=== PATIENT | male | born 1965 | race Caucasian/White ===

== ENCOUNTER → 2017-07-19 | Outpatient (CLI) | payer BC ==
[2017-07-19 08:16] LABS: Basophils % (A) 1 %; Eosinophils # (A) 0.1 k/uL (0-0.7); Eosinophils % (A) 2 %; HCT 41.1 % (39.0-53.0); HGB 14.1 gm/dL (13.0-17.5); Lymphocytes # (A) 1.6 k/uL (1.0-4.8); Lymphocytes % (A) 30 %; MCH 29.6 pg (25.0-35.0); MCHC 34.3 g/dL (31.0-37.0); MCV 86.3 fL (80.0-100.0); Mean Platelet Volume 6.3; Monocytes # (A) 0.4 k/uL (0-1.0); Monocytes % (A) 7 %; Neutrophils # (A) 3.1 k/uL (1.3-7.7); Neutrophils % (A) 59 %; Platelet Count 329 k/uL (150-450); RBC 4.76 m/uL (4.30-5.90); RDW 12.6 % (11.5-15.5); WBC 5.3 k/uL (3.8-10.6)
[2017-07-19 08:32] LABS: ALT 22 U/L (21-72); AST 21 U/L (17-59); Albumin 4.4 g/dL (3.5-5.0); Alkaline Phosphatase 60 U/L (38-126); Anion Gap 9 mmol/L; Blood Urea Nitrogen 17 mg/dL (9-20); Calcium 9.8 mg/dL (8.4-10.2); Carbon Dioxide 28 mmol/L (22-30); Chloride 105 mmol/L (98-107); Cholesterol 147 mg/dL (<200); Glucose 93 mg/dL (74-99); HDL Cholesterol 48 mg/dL (40-60); LDL Cholesterol,Calculated 85 mg/dL (0-99); Potassium 4.4 mmol/L (3.5-5.1); Sodium 142 mmol/L (137-145); Total Bilirubin 0.7 mg/dL (0.2-1.3); Total Protein 7.1 g/dL (6.3-8.2); Triglycerides 71 mg/dL (<150)
[2017-07-19 08:35] LABS: Partial Thromboplastin Time 24.8 sec (22.0-30.0); Prothrombin Time 10.1 sec (9.0-12.0)
== END | disposition home or self-care (01) ==
LOC: LABPAT 07:44
PROVIDERS: ATTEND Orthopaedic Surgery
DX: Z01.812 Encounter for preprocedural laboratory examination (principal); M16.12 Unilateral primary osteoarthritis, left hip
CPT/HCPCS: 36415; 80053; 80061; 85025; 85610; 85730; 86850; 86900; 86901; 87070

== ENCOUNTER 2017-07-29 11:09 | Inpatient (IN) | payer BC ==
[2017-07-19 12:24] VITALS: BMI 26.8
--- NOTE | 2017-07-28 12:38 | HP ---
HISTORY AND PHYSICAL REASON FOR ADMISSION: Surgery scheduled for 07/29/2017. Levon Riojas is a 52-year-old patient seen with symptomatic left hip osteoarthritis. We discussed treatment options. He elected to proceed with direct anterior left total hip arthroplasty. Consent regarding procedure obtained. Medical clearance was provided by Dr. Mendoza. PAST MEDICAL HISTORY: Gastroesophageal reflux disease. PAST SURGICAL HISTORY: Noncontributory. MEDICATIONS: Omeprazole, Vytorin. ALLERGIES: PENICILLIN. SOCIAL HISTORY: Patient denies current tobacco use. PHYSICAL EXAMINATION: Evaluation left hip range of motion is limited with significant pain. Positive hip impingement sign. Straight leg raise is negative. Distal neurovascular exam is intact. RADIOGRAPHS: Radiographs of the left hip revealed moderate to severe osteoarthritic changes. IMPRESSION: Left hip osteoarthritis. PLAN: Direct anterior left total hip arthroplasty. Surgery scheduled for 07/29/2017. MMODL / IJN: [id number] /
[~2017-07-29 11:09] MED LIST: ACETAMINOPHEN TAB 500 MG TAB PO ONE; DEXAMETHASONE SOD PHOSPHATE 10 MG/ML 1 ML VIAL IV ONE; HYDROmorphone 0.5 MG/0.5 ML SYRINGE IVP PRN; MELOXICAM 7.5 MG TAB PO ONE; ONDANSETRON 4 MG/2 ML VIAL IVP ONE; TRANEXAMIC ACID 1,000 MG in SODIUM CHLORIDE 0.9% 50 ML IVPB ONE; ceFAZolin IN SWFI 2 GM/20 ML SYRINGE IVP ONE
[2017-07-29] MEDS ORDERED: LIDOCAINE 1% 20 ML VIAL (10MG/ML) FOR IV START INTRADERMA ONE (12:03)
[2017-07-29] MEDS: LACTATED RINGERS 1,000 ML IV SCH ×2 (12:05→22:55)
[2017-07-29] MEDS ORDERED: ROPIVACAINE 246.25 MG, EPINEPHrine 0.5 MG, KETOROLAC 30 MG, cloNIDine HCL/PF 80 MCG, WA... MISCELLANE ONE ×5 (13:14)
[2017-07-29] MEDS ORDERED: MIDAZOLAM 2 MG/2 ML VIAL ONE (14:15)
[2017-07-29] MEDS ORDERED: PROPOFOL 10 MG/ML 20 ML VIAL IV ONE (14:15)
[2017-07-29] MEDS ORDERED: fentaNYL (PF) 50 MCG/ML 2 ML AMP ONE (14:15)
[2017-07-29] MEDS ORDERED: LIDOCAINE 1% INJ 10MG/ML (20 ML MDV) ONE (14:15)
[2017-07-29] MEDS ORDERED: CLINDAMYCIN 1,800 MG in SODIUM CHLORIDE 0.9% IRRIGATIO 3,000 ML IRRIGATION ONE (14:56)
[2017-07-29] MEDS ORDERED: LACTATED RINGERS 1,000 ML IV ONE (16:33)
[2017-07-29] MEDS ORDERED: hydrOXYzine PAMOATE 25 MG CAP PO PRN (16:35)
[2017-07-29] MEDS ORDERED: HYDROcodone/APAP 7.5-325MG 1 EACH TAB PO PRN (16:35)
[2017-07-29] MEDS ORDERED: NALOXONE 0.4 MG/ML 1 ML VIAL IV PRN (16:35)
[2017-07-29] MEDS ORDERED: ONDANSETRON 4 MG/2 ML VIAL IVP PRN (16:35)
[2017-07-29] MEDS ORDERED: MORPHINE SULFATE 4 MG/ML SYRINGE IVP PRN ×3 (16:35)
--- NOTE | 2017-07-29 16:35 | P.OP ---
Date of Procedure: 07/29/17 Preoperative Diagnosis: Left hip osteoarthritis Postoperative Diagnosis: Left hip osteoarthritis Procedure(s) Performed: Direct anterior left total hip arthroplasty Implants: 1. Depuy Corail KLA size 14 high offset collared press-fit femoral stem 2. Depuy pinnacle 58 mm press-fit acetabular shell 3. Depuy pinnacle polyethylene acetabular liner neutral 36 mm ID 58 mm OD 4. Depuy metallic femoral head 36 mm -2 Anesthesia: local, spinal Surgeon: Eddie Nguyen Sand Molder #1: Shaun Centeno Estimated Blood Loss (ml): 275 Pathology: none sent (Femoral head) Condition: stable Disposition: PACU Indications for Procedure: 52-year-old patient seen with symptomatic left hip osteoarthritis. After having treatment options discussed, he elected to proceed with total hip arthroplasty. Operative Findings: see description of procedure Description of Procedure: The patient was taken to the operative suite. Patient underwent a spinal anesthetic by the department of anesthesia. Patient was then transferred to the [place] table. Patient was given preoperative IV antibiotics and TXA. Both lower extremities were placed in standard leg spars. The hip was then prepped and draped in the normal sterile orthopedic fashion. A standard anterior incision was made beginning 3 cm lateral and 1 cm distal to the ASIS extending 10 cm. Dissection was then carried down through the subcutaneous soft tissues down to the fascia overlying the tensor fascia janene. An incision was now made through the fascia. Careful dissection was taken down exposing the tensor fascia janene muscle. A Cobra retractor was now placed along the medial femoral neck and a second one along the lateral femoral neck. The venous circumflex vessels were now identified, cauterized and clipped. We identified the anterior hip capsule. An incision was made through the hip capsule along the lateral border. Tag sutures were then placed along the anterior capsule and lateral capsule. We then performed a capsulotomy. Retractors were now placed around the femoral neck itself. A Cobra retractor was now placed along the anterior acetabulum. Good exposure was now noted of the femoral head/neck complex. Residual labrum was debrided out. We placed the extremity into 3 turns of fine traction. We were then able to introduce a skid in between the femoral head and acetabulum. A placed a awl into the femoral head. We took 2 turns of traction off the extremity. Rotation was now released. The femoral head was then dislocated without difficulty. Additional releasing was performed of the capsule. The head was then reduced. All traction was released. A femoral neck cut was now made with a sagittal saw. It was completed with an osteotome at the lateral neck area. The femoral head was now removed without difficulty. There was advanced osteoarthritis noted of the joint. The extremity was now rotated to 60 of external rotation. It was locked in position. Residual labrum was now debrided out. Serial reaming was performed of the acetabulum. Once we reached the appropriate size and a trial was position and fit nicely. The appropriate size was now chosen opened and made available. The trial component was removed. The wound was irrigated with pulse lavage mechanical irrigation. It was introduced into the acetabulum without difficulty. The C-arm/fluoroscopy was now brought into the operative field. We made sure we had a true AP pelvic view. We now under direct C-arm/ fluoroscopy introduced into the acetabular component with appropriate version and inclination. It was well seated but did not feel exceptionally stable. I now introduced 3 screws with good bite and purchase stabilizing the acetabular component. The C-arm was brought back in the field confirming adequate alignment. The C-arm was pulled back. An appropriate liner was introduced and clicked into position. It was felt to be stable. At this point retractors were removed. The extremity was now placed into 120 external rotation with no traction. The leg was now dropped to the ground and adducted. Appropriate retractors were now positioned along the proximal femur. We also placed our femoral look into position. Additional capsular releasing was performed to gain access to the proximal femur. We now used a box osteotome. A canal finder was now utilized. Serial broaching was now performed until we reached the appropriate size with good overall rotational stability. Appropriate calcar planing was performed. A trial head/neck was placed into position. The hip was now reduced. The C-arm/fluoroscopy was brought back into the operative field. A spot film was obtained of the nonoperative hip. A spot film was obtained of the trial components. Overlays were performed, we noted good overall alignment and positioning for determining leg length. The C-arm/ fluoroscopy was pulled back. Retractors were repositioned and the hip was dislocated. The leg was again taken down to the ground and adducted. Appropriate retractors were repositioned as well as the femoral hook. All trial components were removed. The wound was irrigated with pulse lavage mechanical irrigation. The femoral implant was opened along with the femoral head. The femoral implant was introduced with good purchase and fixation noted. The femoral head was introduced with good positioning and fixation noted. Retractors were now removed. The hip was now reduced. There appeared be good positioning of the hip. This was confirmed under fluoroscopy and spot films were obtained to document this. A second gram of TXA was given. Bipolar cautery had been utilized intermittently through the procedure for hemostasis. The wound was irrigated copiously with pulse lavage mechanical irrigation. The soft tissues were infiltrated local analgesic. The fascia was repaired with Vicryl suture. The subcutaneous soft tissues were repaired in layers with Vicryl suture. The skin was approximated with pernio/Dermabond. Sterile dressings were applied. Patient was then awakened, transferred to a bed and taken to recovery in stable condition. Rivera LOPEZ assisted with the procedure.
[2017-07-29 18:32] LABS: Glucose,Whole Blood 134 mg/dL (75-99)
[2017-07-29] MEDS ORDERED: SODIUM CHLORIDE 0.9% 500 ML IV ONE (18:47)
[2017-07-29 19:12] LABS: Basophils % (A) 0 %; Eosinophils % (A) 0 %; HCT 35.1 % (39.0-53.0); HGB 11.4 gm/dL (13.0-17.5); Lymphocytes # (A) 0.6 k/uL (1.0-4.8); Lymphocytes % (A) 5 %; MCH 28.7 pg (25.0-35.0); MCHC 32.5 g/dL (31.0-37.0); MCV 88.4 fL (80.0-100.0); Mean Platelet Volume 6.5; Monocytes # (A) 0.2 k/uL (0-1.0); Monocytes % (A) 2 %; Neutrophils # (A) 11.7 k/uL (1.3-7.7); Neutrophils % (A) 93 %; Platelet Count 291 k/uL (150-450); RBC 3.97 m/uL (4.30-5.90); RDW 12.9 % (11.5-15.5); WBC 12.6 k/uL (3.8-10.6)
[2017-07-29] MEDS: traMADol 50 MG TAB PO SCH ×2 (20:56→21:02)
[2017-07-29] MEDS: SODIUM CHLORIDE 0.9% 1,000 ML IV SCH (21:07)
[2017-07-29] MEDS: ceFAZolin IN SWFI 2 GM/20 ML SYRINGE IVP SCH (22:15)
[2017-07-29] MEDS: SENNOSIDES-DOCUSATE SODIUM 1 EACH TAB PO SCH (22:15)
[2017-07-30] MEDS: LACTATED RINGERS 1,000 ML IV SCH ×3 (06:03→17:53)
[2017-07-30] MEDS: SODIUM CHLORIDE 0.9% 1,000 ML IV SCH ×3 (06:06→21:06)
[2017-07-30] MEDS: ceFAZolin IN SWFI 2 GM/20 ML SYRINGE IVP SCH (06:06)
[2017-07-30] MEDS: HYDROcodone/APAP 7.5-325MG 1 EACH TAB PO PRN (08:21)
[2017-07-30] MEDS: FAMOTIDINE 20 MG TAB PO SCH (08:21)
[2017-07-30] MEDS: ENOXAPARIN 40 MG/0.4 ML SYRINGE SQ SCH (08:21)
[2017-07-30] MEDS: traMADol 50 MG TAB PO SCH ×4 (08:21→21:07)
[2017-07-30 08:37] LABS: Basophils % (A) 0 %; Eosinophils % (A) 0 %; HGB 10.2 gm/dL (13.0-17.5); Lymphocytes % (A) 7 %; MCH 29.6 pg (25.0-35.0); MCV 87.2 fL (80.0-100.0); Mean Platelet Volume 6.3; Monocytes % (A) 7 %; Neutrophils # (A) 12.4 k/uL (1.3-7.7); Neutrophils % (A) 86 %; Platelet Count 279 k/uL (150-450); RBC 3.45 m/uL (4.30-5.90); RDW 12.8 % (11.5-15.5); WBC 14.4 k/uL (3.8-10.6)
--- NOTE | 2017-07-30 10:00 | FL ---
Fluoroscopy INDICATION: Pain FINDINGS: Fluoroscopy time: 12 seconds. Images obtained: 1. IMPRESSIONS: 1. Documentation of fluoroscopy.
--- NOTE | 2017-07-30 10:19 | P.DS ---
Providers Date of admission: 07/29/17 11:09 Expected date of discharge: 07/31/17 Attending physician: Eddie Nguyen Consults: 07/29/17 16:35 Consult Physician Routine Consulting Provider: Marilee Hills Consult Reason/Comments: Medical management Do you want consulting provider notified?: Yes 07/29/17 18:47 Consult Physician Routine Consulting Provider: [facility] Consult Reason/Comments: bradycardia Do you want consulting provider notified?: Yes Primary care physician: Tanvir [facility] Course: Date of admission: 07/29/2017 Date of discharge: 07/31/2017 Admission diagnosis: status post left total hip arthroplasty Discharge diagnosis: same Attending physician: Dr. Nguyen Surgical procedures: left total hip arthroplasty Brief history: Patient is a 52-year-old male with a history of progressive primary left hip arthritis. At this point patient has failed conservative treatment measures and has opted to proceed with a elective left total hip arthroplasty. Hospital course: Details of patient's surgery can be found in operative report. Patient tolerated the procedure well and was subsequently transported to orthopedic floor. Patient's orthopeidc and medical care was provided daily. Patient had daily laboratory tests performed for evaluation of overall blood counts. Patient had daily physical therapy to include strengthening range of motion as well as education with walker ambulation. Patient was treated with Lovenox for their postoperative DVT prophylaxis during their inpatient stay. Patient was noted to have a relatively uneventful postoperative course. Patient reported satisfactory pain control with oral pain medications by postoperative day 0. Patient showed satisfactory progress with physical therapy. Patient moved steadily through the program and had no difficulty meeting the goals by postoperative day 2. Given patient's otherwise satisfactory course and having met physical therapy goals, plan is to discharge patient home on postoperative day 2. Discharge condition/disposition: Patient will be discharged home in stable condition. Discharge medications: Instructions are given on resumption of patient's normal daily medications per primary care recommendation, in addition patient will be prescribed [place] 7.5 mg/325 mg, tramadol 50 mg, Colace 100 mg, Pepcid 20 mg, aspirin 325 mg. Discharge instructions: 1. Wound care and infection precautions, keep incision dry and covered while showering, no lotions, creams, moisturizers. No soaking, tubs, pools, hottubs. Do not scrub over the incision. 2. Weight-bear as tolerated with walker / cane until follow-up. 3. Ice and elevate when necessary. Do not exceed 20 minutes per hour with ice pack. 4. Utilize compression sleeve until seen at first follow up appointment. 5. Visiting nursing care. 6. Home physical therapy 7. Pain meds and anticoagulants per prescription. 8. Pain medication has potential to cause constipation. Increase oral fluid and fiber intake. Contact primary care provider if you have not had a bowel movement within 48 hours after discharge 9. No anti-inflammatory medication until discussed at first post operative visit, this including Motrin, Aleve, Mobic, Diclofenac 10. Follow up in office at 2 weeks postop with Rivera Centeno PA-C 11. Follow up with your primary care doctor 7-10 days after discharge. 12. Contact [facility] with any questions, . Procedures: Left total hip arthroplasty Patient Condition at Discharge: Good Plan - Discharge Summary Discharge Rx Participant: Yes New Discharge Prescriptions: New Aspirin 325 mg PO BID #60 tab Docusate [Colace] 100 mg PO DAILY #30 capsule Famotidine [Pepcid] 20 mg PO DAILY #30 tablet HYDROcodone/APAP 7.5-325MG [[place] 7.5] 1 each PO Q6HR PRN #40 tab PRN Reason: Pain traMADol HCl [Ultram] 50 mg PO Q6H PRN #40 tab PRN Reason: Pain No Action Ezetimibe/Simvastatin [Vytorin 10-40 mg Tablet] 1 tab PO HS Discharge Medication List Ezetimibe/Simvastatin [Vytorin 10-40 mg Tablet] 1 tab PO HS 07/19/17 [History] Aspirin 325 mg PO BID #60 tab 07/31/17 [Rx] Docusate [Colace] 100 mg PO DAILY #30 capsule 07/31/17 [Rx] Famotidine [Pepcid] 20 mg PO DAILY #30 tablet 07/31/17 [Rx] HYDROcodone/APAP 7.5-325MG [[place] 7.5] 1 each PO Q6HR PRN #40 tab 07/31/17 [Rx] traMADol HCl [Ultram] 50 mg PO Q6H PRN #40 tab 07/31/17 [Rx] Follow up Appointment(s)/Referral(s): Tanvir Mendoza MD [Primary Care Provider] - 1 Week [facility], [NON-STAFF] - Shaun Centeno PAC [PHYSICIAN GOLD FRAME ASSEMBLER] - 2 Weeks Patient Instructions/Handouts: Total Hip Replacement (DC) Activity/Diet/Wound Care/Special Instructions: Orthopedic Discharge Instructions: 1. Wound care and infection precautions, keep incision dry and covered while showering, no lotions, creams, moisturizers. No soaking, pools, hot tubs. Do not scrub over incision. 2. Weight-bear as tolerated with walker / cane until follow-up. 3. Ice and elevate when necessary. Do not exceed 20 minutes per hour with ice pack. 4. Utilize compression sleeve until seen at first follow up appointment. 5. Visiting nursing care. 6. Home physical therapy. 7. Pain meds and anticoagulants per prescription. 8. Pain medication has potential to cause constipation. Increase oral fluid and fiber intake. Contact primary care provider if you have not had a bowel movement within 48 hours after discharge. 9. No anti-inflammatory medication until discussed at first post operative visit, this including Motrin, Aleve, Mobic, Diclofenac. 10. Follow up in office at 2 weeks postop with Rivera Centeno PA-C 11. Follow up with your primary care doctor 7-10 days after discharge. 12. Contact [facility] with any questions, Discharge Disposition: HOME WITH HOME HEALTH SERVICES
--- NOTE | 2017-07-30 11:09 | P.PN ---
Subjective Progress Note Date: 07/30/17 Principal diagnosis: Status post left total hip arthroplasty Patient is seen today resting in his hospital bed, he appears comfortable. His is present with him at bedside. Patient is ambulating with therapy today, his pain is well-controlled. There was a CODE BLUE was called and the patient last night, there was then a cardiac consult place with numerous labs and other tests. He remains a symptomatic at this point. He denies any headaches, lightheadedness, chest pain or shortness of breath. Objective - Vital Signs Vital signs: Vital Signs Temp 98.3 F 07/30/17 07:00 Pulse 80 07/30/17 07:00 Resp 16 07/30/17 07:00 BP 123/70 07/30/17 07:00 Pulse Ox 97 07/30/17 07:00 Intake & Output 07/29/17 07/30/17 07/30/17 18:59 06:59 18:59 Intake Total 1451 1000 237 Output Total 275 900 Balance 1176 100 237 Weight 84.822 kg Intake: IV 1451 1000 Sodium Chloride 0.9% 1, 1000 000 ml @ 125 mls/hr IV . Q8H [facility] Rx#:[id number] Oral 237 Output: Urine 900 Estimated Blood Loss 275 Other: Voiding Method Urinal # Voids 1 - Exam Left lower extremity: Incision is clean, dry, and intact. The prineo tape is in good condition. There is minimal soft tissue swelling and ecchymosis surrounding the medial and lateral aspects of the incision. Calf is soft, no tenderness with palpation. Plantar flexion, dorsiflexion, EHL, FHL are intact. Sensory exam to light touch throughout the extremity is intact, dorsal pedis pulses 2+. - Labs CBC & Chem 7: 07/30/17 07:18 Labs: Abnormal Lab Results - Last 24 Hours (Table) 07/29/17 07/29/17 07/30/17 Range/Units 18:27 18:54 07:18 WBC 12.6 H 14.4 H (3.8-10.6) k/uL RBC 3.97 L 3.45 L (4.30-5.90) m/uL Hgb 11.4 L 10.2 L (13.0-17.5) gm/dL Hct 35.1 L 30.0 L (39.0-53.0) % Neutrophils # 11.7 H 12.4 H (1.3-7.7) k/uL Lymphocytes # 0.6 L (1.0-4.8) k/uL POC Glucose (mg/dL) 134 H (75-99) mg/dL Assessment and Plan Plan: Assessment: 1. Postop day 1 status post left total hip arthroplasty Plan: 1. Pain control, continue use of oral medication 2. Weight-bear as tolerated with walker 3. Daily dressing changes/ice the hip region 4. GI and DVT prophylaxis, continue Lovenox during inpatient stay 5. Await cardiac recommendations 6. Medical recommendations 7. Discharge planning: An orthopedic standpoint, the patient is stable for discharge to home. Will await cardiac recommendations Time with Patient: Less than 30
[2017-07-30] MEDS ORDERED: HYDROmorphone 2 MG TAB PO PRN ×2 (15:19→15:20)
[2017-07-30] MEDS ORDERED: HYDROmorphone 4 MG TABLET PO PRN (15:22)
--- NOTE | 2017-07-30 18:55 | ECHOF ---
Referral Reason:bradycardia, vagal response MEASUREMENTS -------- HEIGHT: 177.8 cm WEIGHT: 84.8 kg BP: 126/62 RVIDd: 2.8 cm (< 3.3) IVSd: 0.8 cm (0.6 - 1.1) LVIDd: 5.3 cm (3.9 - 5.3) LVPWd: 0.9 cm (0.6 - 1.1) IVSs: 1.5 cm LVIDs: 3.0 cm LVPWs: 1.6 cm LAESV Index (A-L): 22.80 ml/m Ao Diam: 3.3 cm (2.0 - 3.7) AV Cusp: 2.2 cm (1.5 - 2.6) LA Diam: 3.2 cm (2.7 - 3.8) EPSS: 0.3 cm MV E Pramod: 1.08 m/s MV DecT: 184 ms MV A Pramod: 1.09 m/s MV E/A Ratio: 0.99 RAP: 5.00 mmHg RVSP: 36.77 mmHg MV EF SLOPE: 101.00 mm/s (70 - 150) MV EXCURSION: 1.84 cm (> 18.000) FINDINGS -------- Sinus rhythm. This was a technically good study. The left ventricular size is normal. Left ventricular wall thickness is normal. Overall left vent ricular systolic function is normal with, an EF between 55 - 60 %. The right ventricle is normal in size and function. Normal LA size by volume 22+/-6 ml/m2. The right atrium is normal in size. The aortic valve is trileaflet, and appears structurally normal. No aortic stenosis or regurgitation. The mitral valve leaflets are mildly thickened. There is trace to mild mitral regurgitation. Mild tricuspid regurgitation present. There is borderline pulmonary hypertension. The right ventr icular systolic pressure, as measured by Doppler, is 36.77mmHg. Trace/mild (physiologic) pulmonic regurgitation. The aortic root size is normal. Normal inferior vena cava with normal inspiratory collapse consistent with estimated right atrial pre ssure of 5 mmHg. The pericardium is normal. There is no pericardial effusion. CONCLUSIONS -------- 1. Sinus rhythm. 2. This was a technically good study. 3. The left ventricular size is normal. 4. Left ventricular wall thickness is normal. 5. Overall left ventricular systolic function is normal with, an EF between 55 - 60 %. 6. Normal LA size by volume 22+/-6 ml/m2. 7. The aortic valve is trileaflet, and appears structurally normal. No aortic stenosis or regurgitati on. 8. The mitral valve leaflets are mildly thickened. 9. There is trace to mild mitral regurgitation. 10. Mild tricuspid regurgitation present. 11. There is borderline pulmonary hypertension. 12. The right ventricular systolic pressure, as measured by Doppler, is 36.77mmHg. 13. Trace/mild (physiologic) pulmonic regurgitation. 14. The aortic root size is normal. 15. There is no pericardial effusion. PANTRY STEWARD/STEWARDESS: Rosendo Gutiérrez RDCS
--- NOTE | 2017-07-30 19:14 | P.CRDCN ---
History of Present Illness Consult date: 07/30/17 History of present illness: This is a 60-year-old gentleman who had elective hip replacement yesterday. Yesterday evening patient was in bed and apparently developed some nausea and vomiting. Subsequently, he became unresponsive. According to patient's , patient was looking pale, clenching his hands and staring down without answering. She called for help. According to the nurses, he was unresponsive and pale. His blood pressure was 70 and his heart rate was in the 30s and 40s. He was put in Trendelenburg position and gradually his blood pressure and heart rate improved and patient became responsive with some fluctuating mentation. Since then patient has gradually improved and stayed stable. No complaints of any chest pain or palpitations. His initial EKG showed sinus rhythm and sinus bradycardia. No changes of ischemia. Cardiac enzymes 2 are negative. Echo Cardigan showed normal LV function. At this time is felt that her symptoms most probably vasovagal. This could be related to medication. Review of Systems REVIEW OF SYSTEMS: CONSTITUTIONAL: As per the chart. Patient is doing well. No complaints of fever or chills EYES: Denies diplopia, blurring of vision EARS, NOSE, MOUTH, THROAT: Denies headaches, denies sore throat. CARDIOVASCULAR: Denies chest pain, denies shortness of breath, denies palpitations RESPIRATORY: Denies shortness of breath, denies cough. GASTROINTESTINAL: Denies change in appetite, denies abdominal pain, denies diarrhea GENITOURINARY: Denies hematuria, denies infections. MUSKULOSKELETAL: Denies any significant pain in the hip INTEGUMENTARY: Denies rash, denies eczema. NEUROLOGICAL: Denies focal weakness, or visual disturbance. Denies any dizziness or syncope PSYCHIATRIC: Denies anxiety, denies depression. HEMATOLOGIC/LYMPHATIC: Denies any bleeding, denies enlarged lymph nodes. Past Medical History Past Medical History: Osteoarthritis (OA) History of Any Multi-Drug Resistant Organisms: None Reported Past Surgical History: Adenoidectomy, Tonsillectomy Additional Past Surgical History / Comment(s): POLYP REMOVED FROM THROAT Past Anesthesia/Blood Transfusion Reactions: No Reported Reaction Past Psychological History: No Psychological Hx Reported Smoking Status: Never smoker Past Alcohol Use History: Rare Past Drug Use History: None Reported - Past Family History Mother Family Medical History: No Reported History Medications and Allergies Home Medications Medication Instructions Recorded Confirmed Type Ezetimibe/Simvastatin [Vytorin 1 tab PO HS 07/19/17 07/29/17 History 10-40 mg Tablet] Ibuprofen [Motrin Ib] 800 mg PO BID PRN 07/19/17 07/29/17 History Allergies Allergy/AdvReac Type Severity Reaction Status Date / Time Penicillins Allergy Unknown Verified 07/29/17 18:16 Physical Exam Vitals: Vital Signs Temp Pulse Pulse Resp BP Pulse Ox 07/30/17 14:27 97.8 F 71 16 116/70 96 07/30/17 07:00 98.3 F 80 16 123/70 97 07/30/17 02:11 99.3 F 92 17 126/62 95 07/29/17 21:03 97.4 F L 69 16 97/60 99 Intake and Output 07/30/17 07/30/17 07/30/17 06:59 14:59 22:59 Intake Total 1000 1487 237 Output Total 900 Balance 100 1487 237 Intake: IV 1000 1000 Sodium Chloride 0.9% 1, 1000 1000 000 ml @ 125 mls/hr IV . Q8H [facility] Rx#:[id number] Oral 487 237 Output: Urine 900 Other: Voiding Method Urinal # Voids 2 Weight 84.822 kg GENERAL EXAM: Patient is alert and oriented and doesn't appear to be in any acute distress HEENT: Normocephalic. Normal reaction of pupils, equal size, normal range of extraocular motion. No erythema or exudates in the throat. NECK: No masses, no nuchal rigidity. CHEST: No chest wall deformity. LUNGS: Equal air entry with no crackles or wheeze. HEART: S1 and S2 normal with no audible mumurs or gallops. Regular rhythm, femorals equal on both sides.. ABDOMEN: No hepatosplenomegaly, normal bowel sounds, no guarding or rigidity. SKIN: No rashes CENTRAL NERVOUS SYSTEM: No focal deficits. EXTREMITIES: No cyanosis, clubbing or edema. Results 07/30/17 07:18 Cardiac Enzymes 07/29/17 07/30/17 07/30/17 Range/Units 18:54 00:19 07:18 Troponin I <0.012 <0.012 <0.012 (0.000-0.034) ng/mL CBC 03/12/18 03/13/18 Range/Units 18:54 07:18 WBC 12.6 H 14.4 H (3.8-10.6) k/uL RBC 3.97 L 3.45 L (4.30-5.90) m/uL Hgb 11.4 L 10.2 L (13.0-17.5) gm/dL Hct 35.1 L 30.0 L (39.0-53.0) % Plt Count 291 279 (150-450) k/uL Current Medications Generic Name Dose Route Start Last Admin Trade Name Freq PRN Reason Stop Dose Admin Hydrocodone Bitart/Acetaminophen 2 each 07/29/17 16:35 [place] 7.5-325 PO Q6H PRN Pain Scale 6 to 10 Hydrocodone Bitart/Acetaminophen 1 each 07/29/17 16:35 07/30/17 08:21 [place] 7.5-325 PO 1 each Q6H PRN Administration Pain Scale 1 to 5 Enoxaparin Sodium 40 mg 07/30/17 09:00 07/30/17 08:21 Lovenox SQ 40 mg DAILY RUFUS Administration Famotidine 20 mg 07/30/17 09:00 07/30/17 08:21 Pepcid PO 20 mg DAILY RUFUS Administration Hydromorphone HCl 1 mg 07/30/17 15:19 Dilaudid PO Q3HR PRN Pain Scale 1 to 3 Hydromorphone HCl 2 mg 07/30/17 15:20 Dilaudid PO Q3HR PRN Pain Scale 4 to 6 Hydromorphone HCl 4 mg 07/30/17 15:22 Dilaudid PO Q3HR PRN Pain Scale 7 to 10 Hydroxyzine Pamoate 25 mg 07/29/17 16:35 Vistaril PO Q4HR PRN Nausea, Anxiety, Pain Control Lactated Ringer's 1,000 mls @ 80 mls/hr 07/29/17 16:45 07/30/17 17:53 Lactated Ringers IV Not Given .[id number] RUFUS Sodium Chloride 1,000 mls @ 125 mls/hr 07/29/17 19:00 07/30/17 12:21 Saline 0.9% IV 125 mls/hr .Q8H [facility]US Administration Naloxone HCl 0.2 mg 07/29/17 16:35 Narcan IV Q2M PRN Opioid Reversal Ondansetron HCl 4 mg 07/29/17 16:35 Zofran IVP DAILY PRN Nausea And Vomiting Senna/Docusate Sodium 2 each 07/29/17 21:00 07/29/17 22:15 Senokot-S PO Not Given HS RUFUS Tramadol HCl 50 mg 07/29/17 18:00 07/30/17 17:50 Ultram PO 50 mg QID RUFUS Administration Intake and Output 07/30/17 07/30/17 07/30/17 06:59 14:59 22:59 Intake Total 1000 1487 237 Output Total 900 Balance 100 1487 237 Intake: IV 1000 1000 Sodium Chloride 0.9% 1, 1000 1000 000 ml @ 125 mls/hr IV . Q8H [facility] Rx#:[id number] Oral 487 237 Output: Urine 900 Other: Voiding Method Urinal # Voids 2 Weight 84.822 kg 07/30/17 07:18 EKG Interpretations (text) Sinus rhythm and sinus bradycardia Assessment and Plan (1) Vasovagal syncope Current Visit: Yes Status: Acute Code(s): R55 - SYNCOPE AND COLLAPSE SNOMED Code(s): 399811596 Plan: Patient's esterase episode is suggestive of vasovagal syncope. Cardiac workup so far is negative for any evidence of myocardial infarction. Echo showed normal LV function. Patient is clinically stable. No further cardiac workup at this time. He she could be discharged home. Follow-up in the office in about 2-3 weeks
--- NOTE | 2017-07-30 19:23 | P.HPIM ---
History of Present Illness H&P Date: 07/30/17 Chief Complaint: Medical management left total hip arthroplasty This is a pleasant 52-year-old gentleman patient of Dr. Mendoza, he has underlying history of arthritis, otherwise is healthy without any significant cardiac or pulmonary problems, admitted to the hospital secondary to a right total hip arthroplasty performed on 07/29/2017. Patient was transferred to the surgical floor, and around late in the evening post guillen post op, they have cold a cold on the patient on as the patient has passed out was hypotensive and unresponsive, blood pressure was systolic 70s, and the heart rate was in the 30s , EKG was ordered a few minutes, later patient has arousals without any focal neurologic deficits Cerda patient did not complain of chest pain or palpitations prior to this event, it sounds more like a hypotensive event with bradycardia, possibly secondary to pain and anesthesia. Patient was given fluid boluses 500 mL, and IV hydration at 125 mL, echocardiogram was requested along with cardiology consultation EKG was reviewed, sinus bradycardia heart rate 56, no QT prolongation, and no MD prolongation, no acute ST-T wave changes, echocardiogram was reviewed patient is in sinus rhythm, normal LV motion, EF 55-60%, no aortic stenosis, aortic valve is trileaflet, normal mildly thickened mitral valve, borderline pulmonary hypertension, mild TR and mild MR, right ventricular systolic pressure of 36 Review of Systems Constitutional: Reports as per HPI, Denies anorexia, Denies chills, Denies chronic headaches, Denies chronic pain, Denies daytime sleepiness, Denies fatigue, Denies fever, Denies lethargy, Denies malaise, Denies night sweats, Denies poor appetite, Denies sweats, Denies weakness, Denies weight gain, Denies weight loss Ears, nose, mouth and throat: Reports as per HPI, Denies ant. neck pain, Denies bleeding gums, Denies dental pain, Denies dysphagia, Denies epistaxis, Denies headache, Denies hoarseness, Denies mouth pain, Denies nasal congestion, Denies nasal discharge, Denies neck fullness/pressure, Denies neck lump, Denies nose pain, Denies odynophagia, Denies post-nasal drip, Denies sinus pain, Denies sinus pressure, Denies swelling in mouth, Denies swelling in throat, Denies sore throat, Denies vertigo, Denies voice changes Cardiovascular: Reports as per HPI, Denies chest pain, Denies claudication, Denies decreased exercise tolerance, Denies dyspnea on exertion, Denies edema, Denies high blood pressure, Denies irregular heart beat, Denies leg edema, Denies lightheadedness, Denies orthopnea, Denies palpitations, Denies paroxysmal nocturnal dyspnea, Denies phlebitis, Denies rapid heart beat, Denies shortness of breath, Denies syncope Respiratory: Reports as per HPI, Denies congestion, Denies cough, Denies cough with sputum, Denies dyspnea, Denies excessive sputum, Denies hemoptysis, Denies home oxygen, Denies pain, Denies pain on inspiration, Denies pleurisy, Denies respiratory infections, Denies sleep apnea, Denies snoring, Denies wheezing Gastrointestinal: Reports as per HPI, Denies abdominal pain, Denies belching, Denies bloating, Denies BRBPR, Denies change in bowel habits, Denies coffee ground emesis, Denies constipation, Denies diarrhea, Denies dyspepsia, Denies early satiety, Denies excessive gas, Denies heartburn, Denies hematemesis, Denies hematochezia, Denies indigestion, Denies jaundice, Denies lactose intolerance, Denies loss of appetite, Denies melena, Denies nausea, Denies vomiting Genitourinary: Reports as per HPI, Denies decreased libido, Denies difficulties fathering child, Denies discharge, Denies dysuria, Denies erectile dysfunction, Denies flank pain, Denies genital pain, Denies genital sores, Denies hematuria, Denies impotence, Denies incontinence, Denies kidney stones, Denies nocturia, Denies polyuria, Denies testicular lump, Denies testicular pain, Denies urinary frequency, Denies urinary hesitancy, Denies urinary retention Musculoskeletal: Reports as per HPI, Reports gait dysfunction Integumentary: Reports as per HPI, Denies acne, Denies boils, Denies brittle nails, Denies change in hair/nails, Denies color changes, Denies darkening of skin, Denies depigmentation, Denies dryness, Denies foot/leg ulcers, Denies growths, Denies hirsutism, Denies lesions, Denies onychomycosis, Denies pruritus , Denies rash, Denies sores, Denies striae, Denies unusual bruising, Denies wounds Neurological: Reports as per HPI, Reports syncope, Denies aphasia, Denies ataxia , Denies balance difficulties, Denies burning pain, Denies change in mentation, Denies change in smell/taste, Denies change in speech, Denies confusion, Denies convulsions, Denies double vision, Denies gait dysfunction, Denies head injury, Denies headaches, Denies hearing difficulties, Denies lack of coordination, Denies loss of vision, Denies memory loss, Denies migraines, Denies motor disturbance, Denies numbness, Denies paralysis, Denies paresthesias, Denies seizures, Denies sensory deficit, Denies spasticity, Denies tic, Denies tingling , Denies transient paralysis, Denies tremors, Denies vertigo, Denies weakness, Denies visual changes Psychiatric: Reports as per HPI, Denies anhedonia, Denies anxiety, Denies anxiety attacks, Denies change in appetite, Denies change in libido, Denies change in sleep habits, Denies confusion, Denies depression, Denies difficulty concentrating, Denies disorientation, Denies hallucinations, Denies hopelessness , Denies hypersomnia, Denies insomnia, Denies irritability, Denies memory loss, Denies mood swings, Denies paranoia, Denies sadness/tearfulness, Denies sleep disturbances, Denies suicidal ideation Endocrine: Reports as per HPI, Denies cold intolerance, Denies deepening of the voice, Denies excessive sweating, Denies excessive thirst, Denies fatigue, Denies flushing, Denies heat intolerance, Denies high blood sugars, Denies increase in ring/shoe/hat size, Denies low blood sugars, Denies nocturia, Denies palpitations, Denies polydipsia, Denies polyphagia, Denies polyuria, Denies proptosis, Denies recent glucocorticoid use, Denies thyroid mass, Denies weight change Hematologic/Lymphatic: Reports as per HPI Allergic/Immunologic: Reports as per HPI, Denies allergic rhinitis, Denies anaphylaxis, Denies angioedema, Denies gluten intolerance, Denies persistent infections, Denies seasonal allergies, Denies urticaria, Denies wheezing Past Medical History Past Medical History: Osteoarthritis (OA) History of Any Multi-Drug Resistant Organisms: None Reported Past Surgical History: Adenoidectomy, Tonsillectomy Additional Past Surgical History / Comment(s): POLYP REMOVED FROM THROAT Past Anesthesia/Blood Transfusion Reactions: No Reported Reaction Past Psychological History: No Psychological Hx Reported Smoking Status: Never smoker Past Alcohol Use History: Rare Past Drug Use History: None Reported Additional History: Mother is alive with hypertension diabetes mellitus type 2, father has dementia, one brother healthy, no sisters, one daughter one son healthy - Past Family History Mother Family Medical History: No Reported History Medications and Allergies Home Medications Medication Instructions Recorded Confirmed Type Ezetimibe/Simvastatin [Vytorin 1 tab PO HS 07/19/17 07/29/17 History 10-40 mg Tablet] Ibuprofen [Motrin Ib] 800 mg PO BID PRN 07/19/17 07/29/17 History Allergies Allergy/AdvReac Type Severity Reaction Status Date / Time Penicillins Allergy Unknown Verified 07/29/17 18:16 Physical Exam Vitals: Vital Signs Temp Pulse Pulse Resp BP Pulse Ox 07/30/17 07:00 98.3 F 80 16 123/70 97 07/30/17 02:11 99.3 F 92 17 126/62 95 07/29/17 21:03 97.4 F L 69 16 97/60 99 07/29/17 18:55 101/64 07/29/17 18:46 95/54 07/29/17 18:20 72/35 07/29/17 17:20 65 16 110/66 97 07/29/17 17:05 61 16 105/61 95 07/29/17 16:50 97 F L 69 14 111/60 98 07/29/17 11:35 97.8 F 58 L 16 163/84 100 Intake and Output 07/29/17 07/30/17 07/30/17 22:59 06:59 14:59 Intake Total 450 1000 237 Output Total 275 900 Balance 175 100 237 Intake: IV 450 1000 Sodium Chloride 0.9% 1, 1000 000 ml @ 125 mls/hr IV . Q8H [facility] Rx#:[id number] Oral 237 Output: Urine 900 Estimated Blood Loss 275 Other: Voiding Method Urinal # Voids 1 Weight 84.822 kg - Constitutional General appearance: cooperative, no acute distress - EENT Eyes: anicteric sclerae, EOMI, PERRLA, dentition normal, normal appearance ENT: hearing grossly normal, NA/AT, normal oropharynx - Neck Neck: normal ROM - Respiratory Respiratory: bilateral: CTA, negative: diminished, dullness, rales, rhonchi, wheezing, prolonged expiration - Cardiovascular Rhythm: regular Heart sounds: normal: S1, S2 Abnormal Heart Sounds: no systolic murmur, no diastolic murmur, no rub, no S3 Gallop, no S4 Gallop, no click, no other - Gastrointestinal General gastrointestinal: normal bowel sounds, soft - Integumentary Integumentary: decreased turgor, normal - Neurologic Neurologic: CNII-XII intact - Musculoskeletal Musculoskeletal: gait normal, strength equal bilaterally - Psychiatric Psychiatric: A&O x's 3, appropriate affect, intact judgment & insight Results CBC & Chem 7: 07/30/17 07:18 Labs: Abnormal Lab Results - Last 24 Hours (Table) 07/29/17 07/29/17 07/30/17 Range/Units 18:27 18:54 07:18 WBC 12.6 H 14.4 H (3.8-10.6) k/uL RBC 3.97 L 3.45 L (4.30-5.90) m/uL Hgb 11.4 L 10.2 L (13.0-17.5) gm/dL Hct 35.1 L 30.0 L (39.0-53.0) % Neutrophils # 11.7 H 12.4 H (1.3-7.7) k/uL Lymphocytes # 0.6 L (1.0-4.8) k/uL POC Glucose (mg/dL) 134 H (75-99) mg/dL Laboratory Results WBC 14.4 k/uL (3.8-10.6) H 07/30/17 07:18 RBC 3.45 m/uL (4.30-5.90) L 07/30/17 07:18 Hgb 10.2 gm/dL (13.0-17.5) L 07/30/17 07:18 Hct 30.0 % (39.0-53.0) L 07/30/17 07:18 MCV 87.2 fL (80.0-100.0) 07/30/17 07:18 MCH 29.6 pg (25.0-35.0) 07/30/17 07:18 MCHC 34.0 g/dL (31.0-37.0) 07/30/17 07:18 RDW 12.8 % (11.5-15.5) 07/30/17 07:18 Plt Count 279 k/uL (150-450) 07/30/17 07:18 Neutrophils % 86 % 07/30/17 07:18 Lymphocytes % 7 % 07/30/17 07:18 Monocytes % 7 % 07/30/17 07:18 Eosinophils % 0 % 07/30/17 07:18 Basophils % 0 % 07/30/17 07:18 Neutrophils # 12.4 k/uL (1.3-7.7) H 07/30/17 07:18 Lymphocytes # 1.0 k/uL (1.0-4.8) 07/30/17 07:18 Monocytes # 1.0 k/uL (0-1.0) 07/30/17 07:18 Eosinophils # 0.0 k/uL (0-0.7) 07/30/17 07:18 Basophils # 0.0 k/uL (0-0.2) 07/30/17 07:18 POC Glucose (mg/dL) 134 mg/dL (75-99) H 07/29/17 18:27 POC Glu [facility] Lynette Abreu 07/29/17 18:27 Troponin I <0.012 ng/mL (0.000-0.034) 07/30/17 07:18 NT-Pro-B Natriuret Pep 26 pg/mL 07/29/17 18:54 TSH 1.370 mIU/L (0.465-4.680) 07/29/17 18:54 Blood Type O Positive 07/19/17 07:52 Blood Type Recheck No 07/19/17 07:52 Antibody Screen NEGATIVE 07/19/17 07:52 Spec Expiration Date 07/31/2017 07/19/17 07:52 Thrombosis Risk Factor Assmnt - DVT/VTE Prophylaxis DVT/VTE Prophylaxis: Pharmacologic Prophylaxis ordered - Choose All That Apply Any of the Below Risk Factors Present?: Yes Each Factor Represents 1 point: Age 41-60 years, Obesity (BMI >25) Each Risk Factor Represents 5 Points: Elective major lower extremity arthoplasty Thrombosis Risk Factor Assessment Total Risk Factor Score: 7 Thrombosis Risk Factor Assessment Level: High Risk Assessment and Plan Plan: 1. Status post left total hip arthroplasty secondary to advanced DJD, performed on 07/29/2017, patient is to receive DVT prophylaxis, incentive spirometry, and physical therapies. Anticipate discharge with home therapies 2. syncope acute, was likely vasovagal accompanied by hypotensive event, and bradycardia,, the a team has assisted during this acute episode, cardiology has been consulted, and discussed plans of care with cardiology fluids has been aggressively pushed for hydration, and hemodynamic instability, most like secondary to either pain combined with anesthesia, this would be his first episode unfortunately patient was not on the financial services officer during this event 3 Osteoarthritis 4. Acute blood loss anemia, estimated blood loss of 275 mL, hemoglobin currently stable at 10.2, from 11.4 5. BMI of 26 6. Underlying pulmonary hypertension with right ventricular systolic pressure of 36, 7. GI prophylaxis and DVT prophylaxis Thank you Dr. Brook Almonte in allowing us to precipitate the care of your patient.
[2017-07-30 20:09] VITALS: RESP 18
[2017-07-30] MEDS: SENNOSIDES-DOCUSATE SODIUM 1 EACH TAB PO SCH (21:07)
[2017-07-31] MEDS: HYDROcodone/APAP 7.5-325MG 1 EACH TAB PO PRN (01:38)
[2017-07-31] MEDS: SODIUM CHLORIDE 0.9% 1,000 ML IV SCH ×2 (04:21→18:51)
[2017-07-31] MEDS: traMADol 50 MG TAB PO SCH ×2 (09:20→13:19)
[2017-07-31] MEDS: FAMOTIDINE 20 MG TAB PO SCH (09:20)
[2017-07-31] MEDS: ENOXAPARIN 40 MG/0.4 ML SYRINGE SQ SCH (09:20)
--- NOTE | 2017-07-31 10:49 | P.PN ---
Subjective Progress Note Date: 07/31/17 Principal diagnosis: Status post left total hip arthroplasty Patient is seen today resting in his hospital bed, he appears comfortable. Patient is ambulating with therapy today, his pain is well-controlled. Patient denies any headaches, lightheadedness, chest pain or shortness of breath. Objective - Vital Signs Vital signs: Vital Signs Temp 98.2 F 07/31/17 02:06 Pulse 77 07/31/17 02:06 Resp 18 07/31/17 02:06 BP 151/81 07/31/17 02:06 Pulse Ox 94 L 07/31/17 02:06 Intake & Output 07/30/17 07/31/17 07/31/17 18:59 06:59 18:59 Intake Total 1724 2087.5 200 Balance 1724 2087.5 200 Intake: IV 1000 1687.5 Sodium Chloride 0.9% 1, 1000 1687.5 000 ml @ 125 mls/hr IV . Q8H [facility] Rx#:[id number] Oral 724 400 200 Other: # Voids 2 2 - Exam Left lower extremity: Incision is clean, dry, and intact. The prineo tape is in good condition. There is minimal soft tissue swelling and ecchymosis surrounding the medial and lateral aspects of the incision. Calf is soft, no tenderness with palpation. Plantar flexion, dorsiflexion, EHL, FHL are intact. Sensory exam to light touch throughout the extremity is intact, dorsal pedis pulses 2+. - Labs CBC & Chem 7: 07/30/17 07:18 Assessment and Plan Plan: Assessment: 1. Postop day #2 status post left total hip arthroplasty Plan: 1. Pain control, continue use of oral medication 2. Weight-bear as tolerated with walker 3. Daily dressing changes/ice the hip region 4. GI and DVT prophylaxis, plan for discharge home on aspirin 325 mg twice a day 5. Patient has remained asymptomatic with regards to the low blood pressure. He has been seen and evaluated by both internal medicine and cardiology. They are calling this is more of a vasovagal syncopal episode, he is scheduled to follow up with cardiology in 2-3 weeks for recheck. 7. Discharge planning: Plan for discharge home today Time with Patient: Less than 30
[2017-07-31 11:49] VITALS: BP 141/69; PULSE 88; TEMP 98.6
[2017-07-31 13:49] LABS: Appearance,Urine Clear (Clear); Bilirubin,Urine Negative (Negative); Blood,Urine Negative (Negative); Color,Urine Light Yellow; Glucose,Urine (UA) Negative (Negative); Ketones,Urine Negative (Negative); Leukocyte Esterase,Urine Negative (Negative); Nitrite,Urine Negative (Negative); Protein,Urine Negative (Negative); Specific Gravity,Urine 1.009 (1.001-1.035); Urobilinogen,Urine <2.0 mg/dL (<2.0)
== END 2017-07-31 14:57 | disposition home health service (06) | DRG 470 ==
LOC: 2ORMAIN 11:09 → 3SUR 16:38
PROVIDERS: ADMIT Orthopaedic Surgery; ATTEND Orthopaedic Surgery
PROC: 0SRB02A Replacement of Left Hip Joint with Metal on Polyethylene Synthetic Substitute, Uncemented, Open Approach (ICD-10-PCS; principal; 2017-07-29 13:20)
DX: M16.12 Unilateral primary osteoarthritis, left hip (principal); D62 Acute posthemorrhagic anemia; I27.20 Pulmonary hypertension, unspecified; I95.9 Hypotension, unspecified; K21.9 Gastro-esophageal reflux disease without esophagitis; R00.1 Bradycardia, unspecified; R55 Syncope and collapse; Z79.899 Other long term (current) drug therapy; Z88.0 Allergy status to penicillin; Z82.49 Family history of ischemic heart disease and other diseases of the circulatory system
CPT/HCPCS: 73501; 81003; 83880; 84443; 84484; 85025; 86850; 86900; 86901; 87086; 88300; 93005; 93306